=== PATIENT | female | born 1990 | race Caucasian/White ===

== ENCOUNTER → 2016-11-03 | Outpatient (CLI) | payer BC, MEDICAID ==
[~2016-11-03] MED LIST: DOCU-243 PO; FERR325T36 PO; HYDR-33 PO; IBUP-1772 PO; LANO28OI TOP; MECL-105 PO; NORE0.35 PO; ONDA4TAB41 PO; PREN1TAB39 PO
[2016-11-03 14:36] VITALS: BP 123/89
--- NOTE | 2016-11-03 14:36 | Urgent Care T Sheet Gen (E) ---
Intake General Temperature (Fahrenheit): 98.3 Pulse: 104 Blood Pressure Systolic: 123 Blood Pressure Diastolic: 89 Respirations: 20 SPO2: 97 Description of Symptoms Patient presents with illness since this morning. states she woke up feeling "off". Notes dizziness and nausea when changing positions, cruzito going from sit to stand. Has been feeling sweaty as well. Temp of 99.8 this am. Nausea but no vomiting. No one else in the home is sick. Took ibuprofen at 8am. History of Present Illness Allergies: Coded Allergies: Nickel (Verified Allergy, Mild, 04/14/12) rash Home Meds Active Scripts Norethindrone (Ortho Micronor)0.35 Mg Tablet0.35 Mg PO DAILY #28 TAB Prov:ANA YUNG MD 09/03/14 Lanolin,Anhydrous (Lanolin Ointment)28 Gm Oint28 Gm TOP PRN PRN nipple pain #28 GM Prov:ANA YUNG MD 09/03/14 Ibuprofen 600 Mg Tcl311 Mg PO Q6H PRN PAIN #30 Prov:ANA YUNG MD 09/03/14 Docusate Sodium (Colace)100 Mg Bil145 Mg PO HS #20 CAP Prov:ANA YUNG MD 09/03/14 Hydrocodone/Acetaminophen (ED- Zebulon 5/325mg #6)1 Tab Tab1-2 Tab PO Q4H PRN Pain/Cramping #20 TAB Ref 0 Prov:ANA YUNG MD 09/03/14 Reported Medications Ferrous Sulfate (Iron)325 Mg Flpogx604 Mg PO DAILY 04/14/12 Respiratory Constitutional Symptoms: Fever Malaise EENTM: No symptoms reported Respiratory: No symptoms reported Cardiovascular: No symptoms reported Gastrointestinal/Abdominal: Nausea Genitourinary: No symptoms reported Estimated Date of Delivery: 09/11/14 Neurological: Other (dizziness upon standing.) All Other Systems Reviewed Remaining Systems: All other systems reviewed with negative findings Past [id number]-[id number] Hx Patient's Social History Recent foreign travel: No Surgeries/Hospitalizations Hospitalization/Surgery Hx: feet surgery Respiratory Respiratory History: None Cardiovascular Cardiovascular History: None Reproductive System : 3 Living Children: 2 HIV/AIDS: Negative Sexually Transmitted Diseases: No Gastrointestinal GI/Endocrine History: None Diabetes Diabetes: No HEENT Impaired Vision: None Hearing Impaired: None Psychosocial Behavior Disorders: None Physical Exam Physical Exam General Appearance: WD/WN No apparent distress Eyes, Ears, Nose, Throat Ex: PERRL/EOMI (no nystagmus) TMs normal Pharynx normal (moist mucous membranes) Other (nose is clear) Neck Exam: SuppleNo Lymphadenopathy Cardiovascular Exam: Regular rate, rhythm GI/ Exam: Non tender Normal bowel sounds No distentionNo Guarding, No Rebound Progress/Orders Progress Note: Progress Note CBC and CMP are both fairly unremarkable. No signs of electrolyte abnormality and no sign of infection. Departure Urgent Care Impression Impression: Primary Impression: Nausea Additional Impression: Malaise Departure Disposition: HOME OR SELF-CARE Condition: Stable Referrals: ANA YUNG MD (PCP) Additional Instructions: Lab work was unremarkable therefore will treat symptomatically. I have started her on meclizine as needed for dizziness. May also take Zofran as needed for nausea. Patient doesn't appear dehydrated. Normal neuro exam. Return as needed or if symptoms worsen or change Patient understands DC instructions. All questions were answered. Scripts Ondansetron HCl (Zofran)4 Mg Tablet4 Mg PO TID PRN NAUSEA/VOMITING #10 TAB Ref 0 Prov:TANNER DOUGHERTY 11/03/16 Meclizine HCl 25 Mg Tablet1-2 Tab PO Q 6H PRN Nausea/Vomiting #20 TAB Ref 0 Prov:TANNER DOUGHERTY 11/03/16 End of report . TANNER DOUGHERTY November 03, 2016 14:36
== END ==
LOC: MHUC 11:43
PROVIDERS: ATTEND Physician Assistant
DX: R11.0 Nausea (principal); R53.81 Other malaise
CPT/HCPCS: 99213

== ENCOUNTER → 2016-11-03 | Outpatient (CLI) | payer BC ==
[2016-11-03 12:32] LABS: BASOPHILS % (AUTO) 0 % (0-2); EOSINOPHILS # (AUTO) 0.1 10^3uL; EOSINOPHILS % (AUTO) 1 % (0-4); MEAN CORPUSCULAR HEMOGLOBIN 28.3 PG (26.0-34.0); MEAN CORPUSCULAR HGB CONC 33.5 g/dL (31.0-37.0); MEAN CORPUSCULAR VOLUME 85 FL (80-100); MEAN PLATELET VOLUME 10.9 FL (6.0-9.5); MONOCYTES # (AUTO) 0.4 X10^3; MONOCYTES % (AUTO) 8 % (3-11); NEUTROPHILS # (AUTO) 3.7 X10^3; NEUTROPHILS % (AUTO) 71 % (51-67); PLATELET COUNT 195 10^3uL (150-450); WHITE BLOOD COUNT 5.26 10^3uL (4.0-11.0)
[2016-11-03 13:05] LABS: ALBUMIN 4.4 g/dL (3.4-5.0); ANION GAP 18.4 MEQ/L (3-15); CALCULATED IONIZED CALCIUM 3.8 mg/dL (3.8-4.6); TOTAL PROTEIN 7.9 g/dL (6.4-8.5)
== END ==
LOC: LAB 12:18
PROVIDERS: ATTEND Physician Assistant
DX: R53.81 Other malaise (principal)
CPT/HCPCS: 36415; 80053; 85025